=== PATIENT | male | born 1990 | race Two or more races ===

== ENCOUNTER 2025-04-22 10:24 | Emergency (ER) | payer OTHER ==
[~2025-04-22] VITALS: Ht 165.1 cm; Wt 77.1 kg
[2025-04-22] MEDS ORDERED: PANTOPRAZO40 MG/50 M IV (10:30)
[2025-04-22 11:51] LABS: BASO % 0.3 % (0.1-1.2); EOS # 0.06 (0.04-0.54); EOS % 1.8 % (0.7-7.0); LYMPH # 1.17 (1.18-3.74); LYMPH % 34.3 % (19.3-53.1); MEAN PLATELET VOLUME 11.60 fl (9.4-12.4); MONO # 0.20 (0.24-0.82); MONO % 5.9 % (4.7-12.5); NEUT # 1.97 (1.56-6.13); NEUT % 57.7 % (34.0-71.1); RED CELL DISTRIBUTION WIDTH 12.5 % (11.6-14.4)
[2025-04-22 12:26] LABS: BUN CREA RATIO 20.0 (7.0-25.0); CREATININE SERUM 0.98 mg/dL (0.70-1.30); GFR 88.64; GLUCOSE FASTING 95.0 mg/dL (65-100); OSMOLALITY SERUM 284.0 MOSM/KG (275-295)
[2025-04-22] MEDS ORDERED: KETOROLAC TROMETHAMINE 60 MG VIAL IM ONE (14:45)
== END 2025-04-22 15:21 ==
LOC: ER 10:24
PROVIDERS: General Practice
DX: R07.89 Other chest pain (principal)